=== PATIENT | male | born 1960 | race Caucasian/White ===

== ENCOUNTER 2018-11-12 10:08 | Emergency (ER) | payer BC ==
[2018-11-12 10:14] VITALS: RESP 18; TEMP 98
[2018-11-12] MEDS ORDERED: DOCUSATE 283 MG/5 ML ENEMA RECTAL STA (11:01)
[2018-11-12] MEDS ORDERED: MAGNESIUM CITRATE 296 ML BOTTLE PO ONE (11:01)
--- NOTE | 2018-11-12 11:06 | ED ---
General Adult HPI - General Chief complaint: Abdominal Pain Stated complaint: poss hemmoroid Time Seen by Provider: 11/12/18 10:16 Source: patient, RN notes reviewed Mode of arrival: ambulatory Limitations: no limitations - History of Present Illness Initial comments: Patient is a 58-year-old male significant past medical history for diabetes, who presented to the emergency room today with a chief complaint of constipation. Patient states that was unable to have a normal bowel movement this morning. He states that he felt some pressure on the left side as if the stool was going the wrong direction. Patient states he only was able to go a small amount. Denies any history of constipation. Denies any changes in medications. He denies any pain. He states at this time is feeling much more comfortable. Patient denies any recent fever, chills, shortness of breath, chest pain, back pain, abdominal pain, nausea or vomiting, numbness or tingling , dysuria or hematuria, diarrhea, headaches or visual changes, or any other complaints. - Related Data Home Medications Medication Instructions Recorded Confirmed Atorvastatin [Lipitor] 10 mg PO DAILY 11/12/18 11/12/18 Canagliflozin [Invokana] 300 mg PO DAILY 11/12/18 11/12/18 Lisinopril-Hctz 10-12.5 mg 1 tab PO DAILY 11/12/18 11/12/18 [Zestoretic 10-12.5] metFORMIN HCL ER [Glucophage Xr] 1,000 mg PO DAILY 11/12/18 11/12/18 sitaGLIPtin [Januvia] 100 mg PO DAILY 11/12/18 11/12/18 Allergies Allergy/AdvReac Type Severity Reaction Status Date / Time No Known Allergies Allergy Verified 11/12/18 10:29 Review of Systems ROS Statement: Those systems with pertinent positive or pertinent negative responses have been documented in the HPI. ROS Other: All systems not noted in ROS Statement are negative. Past Medical History Past Medical History: Diabetes Mellitus History of Any Multi-Drug Resistant Organisms: None Reported Past Surgical History: Orthopedic Surgery Additional Past Surgical History / Comment(s): ankle and hip replacement Past Psychological History: No Psychological Hx Reported Smoking Status: Never smoker Past Alcohol Use History: Occasional Past Drug Use History: None Reported General Exam - General Exam Comments Initial Comments: General: The patient is awake and alert, in no distress, and does not appear acutely ill. Neck: The neck is supple, there is no tenderness or JVD. Cardiovascular: There is a regular rate and rhythm. No murmur, rub or gallop is appreciated. Respiratory: Lungs are clear to auscultation, respirations are non-labored, breath sounds are equal. No wheezes, stridor, rales, or rhonchi. Gastrointestinal: Soft, non-distended, non-tender abdomen without masses or organomegaly noted. There is no rebound or guarding present. No CVA tenderness. Musculoskeletal: Normal ROM, no tenderness. Neurological: A&O x 3. CN II-XII intact, There are no obvious motor or sensory deficits. Coordination appears grossly intact. Speech is normal. Skin: Skin is warm and dry and no rashes or lesions are noted. Psychiatric: Cooperative, appropriate mood & affect, normal judgment. : Patient does have some hard stool felt on rectal exam. Limitations: no limitations Course Vital Signs 11/12/18 10:11 Temperature 98 F Pulse Rate 69 Respiratory 18 Rate Blood Pressure 152/102 O2 Sat by Pulse 100 Oximetry Medical Decision Making - Medical Decision Making Patient was able have bowel movement here in the emergency room. He did have stool per rectum on exam. There is a stool ball that was appreciated on digital exam was just at the fingertip. Unable to disimpact. Options were discussed with patient about treatments here in the emergency room. He states he would feel more comfortable going home to try an enema and laxative. His abdomen is soft nontender. Patient states he will return if any symptoms increase or worsen. Disposition Clinical Impression: Abdominal pain Disposition: HOME SELF-CARE Condition: Good Instructions: Abdominal Pain (ED) Additional Instructions: Please use medication as discussed. Please follow-up with family doctor in the next 2 days of symptoms have not improved. Please return to emergency room if the symptoms increase or worsen or for any other concerns. Is patient prescribed a controlled substance at d/c from ED?: No Referrals: Nonstaff,Physician [Primary Care Provider] - 1-2 days Time of Disposition: 11:05
[2018-11-12 11:11] VITALS: BP 135/81; PULSE 56
== END 2018-11-12 11:07 | disposition home or self-care (01) ==
LOC: EC 10:08
DX: R10.9 Unspecified abdominal pain (principal); E11.9 Type 2 diabetes mellitus without complications; Z79.84 Long term (current) use of oral hypoglycemic drugs; Z79.899 Other long term (current) drug therapy; Z96.649 Presence of unspecified artificial hip joint; Z96.669 Presence of unspecified artificial ankle joint
CPT/HCPCS: 99283